=== PATIENT | male | born 1960 | race Caucasian/White ===

== ENCOUNTER 2018-08-05 11:19 | Emergency (ER) | payer MEDICAID, OTHER ==
[~2018-08-05] VITALS: Ht 190.5 cm; Wt 113.6 kg
[~2018-08-05 11:19] MED LIST: NO HOME MEDS
[2018-08-05 11:41] VITALS: BP 154/107
[2018-08-05] MEDS ORDERED: CEPH-572 PO (12:54)
[2018-08-05] MEDS ORDERED: MUPI22OI30 TOP (12:54)
== END 2018-08-05 13:17 | disposition home or self-care (01) ==
LOC: ER 11:20
DX: L03.116 Cellulitis of left lower limb (principal); L03.115 Cellulitis of right lower limb; Z79.899 Other long term (current) drug therapy; Z87.891 Personal history of nicotine dependence
CPT/HCPCS: 99283